=== PATIENT | female | born 1935 | race Caucasian/White ===

== ENCOUNTER → 2017-04-10 | Outpatient (CLI) | payer OTHER ==
--- NOTE | 2017-04-10 15:35 | MAMMOGRAPHY REPORT ---
BILATERAL DIGITAL SCREENING MAMMOGRAM WITH CAD: 04/10/2017 CLINICAL HISTORY: Routine screening. Patient has no complaints. TECHNIQUE: Bilateral CC, MLO and left XCCL views were obtained. Current study was also evaluated wit h a Computer Aided Detection (CAD) system. COMPARISON: Comparison is made to exams dated: 04/04/2016 mammogram, 04/01/2015 mammogram, 10/22/2014 ultrasound, 10/22/2014 mammogram, 03/31/2014 mammogram, and 03/17/2014 mammogram - [facility]. BREAST COMPOSITION: There are scattered areas of fibroglandular density in both breasts. FINDINGS: The parenchymal pattern is similar to prior mammograms. There is a stable benign coarse ca lcification in the right breast. No suspicious mass, architectural distortion or cluster of suspicio us microcalcifications is seen. IMPRESSION: ACR BI-RADS CATEGORY 1: NEGATIVE There is no mammographic evidence of malignancy. A 1 year screening mammogram is recommended. The pa tient will receive written notification of the results. Approximately 10% of breast cancers are not detected with mammography. A negative mammographic report should not delay biopsy if a clinically suggestive mass is present. Janice Dalton M.D. ay/:04/10/2017 13:29:56 Gang Tailer: Serenity HAMMER(Cindy)(M), [facility] letter sent: Normal 1/2 BI-RADS Code: ACR BI-RADS Category 1: Negative
== END | disposition home or self-care (01) ==
LOC: C.MAMM 10:10
PROVIDERS: ATTEND Family Medicine
DX: Z12.31 Encounter for screening mammogram for malignant neoplasm of breast (principal)

== ENCOUNTER → 2017-10-16 | Outpatient (CLI) | payer OTHER ==
--- NOTE | 2017-10-16 13:15 | DIAGNOSTIC IMAGING REPORT ---
CT OF THE ABDOMEN AND PELVIS WITH ORAL CONTRAST CLINICAL HISTORY: Epigastric pain. COMPARISON STUDY: No previous studies for comparison. TECHNIQUE: Axial images of the abdomen and pelvis were obtained without intravenous contrast and oral contrast was administered. FINDINGS: Lung bases are clear. Evaluation of the abdomen and pelvis is suboptimal on this unenhanced exam. The liver, spleen and pancreas are unremarkable. There is no biliary ductal dilatation status post cholecystectomy. Small bilateral renal calculi measure up to 3 mm. There are no ureteral calculi and there is no hydronephrosis. There is no evidence for a bowel obstruction. A moderate amount stool is noted within the colon and rectum. The appendix is normal. There is no pneumatosis, free air or portal venous gas. No lymphadenopathy is identified. There are no suspicious osseous lesions. Note is made of a 2.7 cm water attenuation right adnexal lesion and a 2.5 cm water attenuation left adnexal lesion. IMPRESSION: 1. No acute process within the abdomen or pelvis on unenhanced exam. 2. Bilateral nephrolithiasis. No ureteral calculi or hydronephrosis. 3. Moderate amount stool within the colon and rectum. 4. Water attenuation bilateral adnexal lesions which likely reflect cysts but are abnormal in a postmenopausal patient and a pelvic ultrasound is recommended to evaluate for complexity. Electronically signed by: Dong Mejia M.D. 10/16/2017 1:13 PM Dictated Date/Time: 10/16/2017 12:54 PM
== END | disposition home or self-care (01) ==
LOC: C.CTS 11:54
PROVIDERS: ATTEND Physician Assistant
DX: D47.3 Essential (hemorrhagic) thrombocythemia (principal); R10.13 Epigastric pain; N20.0 Calculus of kidney

== ENCOUNTER → 2017-10-30 | Outpatient (CLI) | payer OTHER | END | disposition home or self-care (01) | LOC: C.MAMM 08:50 | PROVIDERS: ATTEND Family Medicine | DX: M81.0 Age-related osteoporosis without current pathological fracture (principal) ==

== ENCOUNTER → 2017-10-30 | Outpatient (CLI) | payer OTHER ==
--- NOTE | 2017-10-30 10:20 | DIAGNOSTIC IMAGING REPORT ---
PELVIC ULTRASOUND CLINICAL HISTORY: OVARIAN CYST COMPARISON STUDY: CT of the abdomen and pelvis October 16, 2017. TECHNIQUE: Transabdominal sonography of the pelvis was performed. The patient deferred transvaginal imaging. FINDINGS: The uterus measures 6.9 x 3.2 x 2.9 cm. Endometrium is not well evaluated on this examination. Note is made of a 3 x 2.2 x 2.4 cm anechoic cystic lesion within the right adnexa as well as a 3 x 2.2 x 2.3 cm anechoic cystic lesion within the left adnexa. These lesions correspond to the lesions shown on CT of October 16, 2017. No mural nodularity or septations are noted. Normal-appearing ovarian tissue is not identified. There is no fluid within the pelvis. IMPRESSION: 3 cm simple appearing cysts within each adnexa. No mural nodularity or septations. These likely reflect ovarian cysts however represent abnormal findings in a postmenopausal patient. A follow-up pelvic ultrasound in 6 months to ensure stability is recommended. Electronically signed by: Dong Mejia M.D. 10/30/2017 10:19 AM Dictated Date/Time: 10/30/2017 10:15 AM
== END | disposition home or self-care (01) ==
LOC: C.ULTR 09:40
PROVIDERS: ATTEND Physician Assistant
DX: N83.201 Unspecified ovarian cyst, right side (principal); N83.202 Unspecified ovarian cyst, left side